=== PATIENT | female | born 1960 | race African-American/Black ===

== ENCOUNTER → 2016-07-02 10:34 | Outpatient (CLI) | payer BC ==
[2011-11-24 07:33] VITALS: BMI 31.5
== END | disposition home or self-care (01) ==
LOC: D.US 10:34
DX: R10.9 Unspecified abdominal pain (principal); R31.9 Hematuria, unspecified

== ENCOUNTER 2020-08-24 22:30 | Outpatient (CLI) | payer BC ==
[2011-11-24 07:33] VITALS: BMI 31.5
== END 2020-08-24 23:59 | disposition home or self-care (01) ==
LOC: D.MAMMO 22:30
PROVIDERS: ATTEND Family Medicine
DX: Z12.31 Encounter for screening mammogram for malignant neoplasm of breast (principal)